=== PATIENT | female | born 1985 | race Caucasian/White ===

== ENCOUNTER 2020-08-12 07:20 | Inpatient (IN) | payer SELFPAY ==
[~2020-08-12] VITALS: Ht 175.2 cm; Wt 119.3 kg
[~2020-08-12 07:20] MED LIST: depo provera
--- NOTE | 2020-08-12 07:29 | ED Chest Pain ---
General Stated Complaint: CP Source: patient, EMS Exam Limitations: no limitations History of Present Illness Date Seen by Provider: Aug 12, 2020 Time Seen by Provider: 07:03 Initial Comments Patient is a 34-year-old female who presents to the emergency department today with a chief complaint of substernal chest pain that she describes as a "squeezing". Patient does endorse a little bit of nausea as well as some shortness of breath with the pain. Patient states she woke up about 6:00 this morning just before her alarm went off with pain and also pain in her forearms. Patient states that she had a numbness, tightness, tingling in her bilateral forearms. She describes the pain as "a 10" at onset and currently a "7". Patient was given 4 baby aspirin and some sublingual nitroglycerin in the ambulance on the way to the hospital. She states that that medication made her pain go down to a "4". Patient denies any recent heavy exertional activities. 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 She is a smoker and admits to about a half a pack a day. No history of hypertension that she is aware of. Patient has not been seen by In at least a year. Patient states that she had her tubes tied 5 years ago and that she does not believe she could be . Her last menstrual cycle was 1 week ago. Patient states she has a family history of coronary artery disease that her mother had a heart attack when she was in her mid 30s. Patient denies any recent febrile illnesses, cough, shortness of breath, congestion. No GI or symptoms. No recent prolonged bedrest or recent travel. All other review of systems reviewed and negative except as stated above. Timing/Duration: 1 hour Severity/Quality: severe, tightness Location: substernal Radiation: arms Activities at Onset: none Prior CP/Workup: no prior cardiac workup Modifying Factors: improves with other (Aspirin and sublingual nitroglycerin) ASA po CHIEF DISPATCHER SERVICE: Yes NTG SL CHIEF DISPATCHER SERVICE: Yes Associated Symptoms: nausea/vomiting Allergies and Home Medications Allergies Coded Allergies: No Known Drug Allergies (Unverified , 12/13/10) Home Medications [depo provera] , every 3 months, (Reported) Patient Home Medication List Home Medication List Reviewed: Yes Review of Systems Review of Systems Constitutional: see HPI EENTM: No Symptoms Reported Respiratory: Shortness of Air Cardiovascular: Chest Pain Gastrointestinal: No Symptoms Reported Genitourinary: No Symptoms Reported Musculoskeletal: other (Bilateral forearm pain) Skin: no symptoms reported All Other Systems Reviewed Negative Unless Noted: Yes Past Xdanzam-Gudbvw-Tnqxqs Hx Past Medical History Reproductive Disorders: No Physical Exam Vital Signs Vital Signs - First Documented Capillary Refill : Height, Weight, BMI Height: '" Weight: lbs. oz. kg; BMI Method: General Appearance: No Apparent Distress, WD/WN Neck: Full Range of Motion, Normal Inspection Respiratory: Lungs Clear, Normal Breath Sounds, No Accessory Muscle Use, No Respiratory Distress Cardiovascular: Regular Rate, Rhythm, No Murmur Gastrointestinal: Normal Bowel Sounds, Non Tender, Soft Extremity: Normal Inspection, Normal Range of Motion, Non Tender, No Calf Tenderness, No Pedal Edema Neurologic/Psychiatric: Alert, Oriented x3, No Motor/Sensory Deficits, Normal Mood/Affect Skin: Normal Color, Warm/Dry Progress/Results/Core Measures Results/Orders Lab Results Laboratory Tests Test 08/12/20 07:31 08/12/20 11:16 Range/Units White Blood Count 7.0 4.3-11.0 10^3/uL Red Blood Count 4.39 3.80-5.11 10^6/uL Hemoglobin 12.7 11.5-16.0 g/dL Hematocrit 38 35-52 % Mean Corpuscular Volume 87 80-99 fL Mean Corpuscular Hemoglobin 29 25-34 pg Mean Corpuscular Hemoglobin Concent 33 32-36 g/dL Red Cell Distribution Width 13.7 10.0-14.5 % Platelet Count 311 130-400 10^3/uL Mean Platelet Volume 9.7 9.0-12.2 fL Immature Granulocyte % (Auto) 0 % Neutrophils (%) (Auto) 49 42-75 % Lymphocytes (%) (Auto) 40 12-44 % Monocytes (%) (Auto) 7 0-12 % Eosinophils (%) (Auto) 3 0-10 % Basophils (%) (Auto) 1 0-10 % Neutrophils # (Auto) 3.5 1.8-7.8 10^3/uL Lymphocytes # (Auto) 2.8 1.0-4.0 10^3/uL Monocytes # (Auto) 0.5 0.0-1.0 10^3/uL Eosinophils # (Auto) 0.2 0.0-0.3 10^3/uL Basophils # (Auto) 0.0 0.0-0.1 10^3/uL Immature Granulocyte # (Auto) 0.0 0.0-0.1 10^3/uL Prothrombin Time 12.9 12.2-14.7 SEC INR Comment 0.9 0.8-1.4 Activated Partial Thromboplast Time 33 24-35 SEC Sodium Level 136 135-145 MMOL/L Potassium Level 3.9 3.6-5.0 MMOL/L Chloride Level 105 98-107 MMOL/L Carbon Dioxide Level 23 21-32 MMOL/L Anion Gap 8 5-14 MMOL/L Blood Urea Nitrogen 12 7-18 MG/DL Creatinine 0.93 0.60-1.30 MG/DL Estimat Glomerular Filtration Rate > 60 BUN/Creatinine Ratio 13 Glucose Level 102 70-105 MG/DL Calcium Level 8.9 8.5-10.1 MG/DL Corrected Calcium 8.9 8.5-10.1 MG/DL Magnesium Level 1.8 1.6-2.4 MG/DL Total Bilirubin 0.3 0.1-1.0 MG/DL Aspartate Amino Transf (AST/SGOT) 14 5-34 U/L Alanine Aminotransferase (ALT/SGPT) 13 0-55 U/L Alkaline Phosphatase 91 40-136 U/L Myoglobin 37.0 10.0-92.0 NG/ML Troponin I < 0.028 40.121 *H <0.028 NG/ML Total Protein 6.9 6.4-8.2 GM/DL Albumin 4.0 3.2-4.5 GM/DL Serum Test, Qualitative NEGATIVE NEGATIVE My Orders Orders - WALTER LANGE MD Cbc With Automated Diff (08/12/20 07:38) Magnesium (08/12/20 07:38) Chest 1 View, Ap/Pa Only (08/12/20 07:38) Ekg Tracing (08/12/20 07:38) Comprehensive Metabolic Panel (08/12/20 07:38) Myoglobin Serum (08/12/20 07:38) Protime With Inr (08/12/20 07:38) Partial Thromboplastin Time (08/12/20 07:38) O2 (08/12/20 07:38) Monitor-Rhythm Ecg Trace Only (08/12/20 07:38) Ed Iv/Invasive Line Start (08/12/20 07:38) Troponin I (08/12/20 07:38) Hcg,Qualitative Serum (08/12/20 08:03) Ondansetron Injection (Zofran Injectio (08/12/20 08:15) Nitroglycerin 0.4 Mg Btl 25's (Nitrostat (08/12/20 08:15) Troponin I (08/12/20 10:19) Clopidogrel Tablet (Plavix Tablet) (08/12/20 12:15) Metoprolol Succinate (Xl) Tab (Toprol Xl (08/12/20 12:15) Medications Given in ED Current Medications Medications Dose Ordered Sig/Memo Route Start Time Stop Time Status Last Admin Dose Admin Clopidogrel Bisulfate 300 mg STK-MED ONCE PO 08/12/20 12:10 08/12/20 12:15 DC 08/12/20 12:20 300 MG Nitroglycerin 0.4 mg NEEDED PRN SL 08/12/20 08:15 08/12/20 08:16 0.4 MG Ondansetron HCl 4 mg ONCE ONCE IVP 08/12/20 08:15 08/12/20 08:16 DC 08/12/20 08:16 4 MG Vital Signs/I&O 08/12/20 08/12/20 07:22 07:22 Temp 36.7 Pulse 77 Resp 17 B/P (MAP) 132/99 (110) Pulse Ox 100 O2 Delivery Room Air Room Air Progress Progress Note : Time: 12:20 Progress Note Notified by nursing staff of the patient's critical troponin at 40. Patient was immediately reevaluated and still resting comfortably without any pain. Repeat EKG was obtained which continued to show no ST segment changes or elevation or depression. Normal sinus rhythm. Case was discussed with Dr. Zi howell for cardiology who requests Toprol-XL 50 mg, 300 mg of Plavix, aspirin 325 and weight-based Lovenox. Care was also discussed with Dr. Rosales who will admit the patient to the hospitalist service. I have also discussed the plan of care with the patient's . Initial ECG Impression Date: Aug 12, 2020 Initial ECG Impression Time: 07:26 Initial ECG Rate: 59 Initial ECG Rhythm: Normal Sinus Initial ECG Intervals: Normal Initial ECG Impression: Normal Departure Communication (Admissions) Time/Spoke to Admitting Phy: 12:[address] Rosales who accepts the patient for admission Time/Spoke to Consulting Phy: 12:13 Case discussed with Impression Primary Impression: Chest pain Additional Impression: Non-ST elevated myocardial infarction Disposition: ADMITTED INPATIENT Condition: Stable Admissions Decision to Admit Reason: Admit from ER (General) Decision to Admit/Date: Aug 12, 2020 Time/Decision to Admit Time: 12:22 Departure-Patient Inst. Referrals: NO,LOCAL PHYSICIAN (PCP/Family) Primary Care Physician WALTER LANGE MD Aug 12, 2020 07:29
[2020-08-12 07:45] LABS: BASOPHILS % (AUTO) 1 % (0-10); EOSINOPHILS # (AUTO) 0.2 10^3/uL (0.0-0.3); EOSINOPHILS % (AUTO) 3 % (0-10); HEMATOCRIT 38 % (35-52); HEMOGLOBIN 12.7 g/dL (11.5-16.0); LYMPHOCYTES # (AUTO) 2.8 10^3/uL (1.0-4.0); LYMPHOCYTES % (AUTO) 40 % (12-44); MEAN CORPUSCULAR HEMOGLOBIN 29 pg (25-34); MEAN CORPUSCULAR HGB CONC 33 g/dL (32-36); MEAN CORPUSCULAR VOLUME 87 fL (80-99); MEAN PLATELET VOLUME 9.7 fL (9.0-12.2); MONOCYTES # (AUTO) 0.5 10^3/uL (0.0-1.0); MONOCYTES % (AUTO) 7 % (0-12); NEUTROPHILS # (AUTO) 3.5 10^3/uL (1.8-7.8); NEUTROPHILS % (AUTO) 49 % (42-75); PLATELET COUNT 311 10^3/uL (130-400)
[2020-08-12 07:48] LABS: CHLORIDE 105 MMOL/L (98-107); POTASSIUM 3.9 MMOL/L (3.6-5.0); SODIUM 136 MMOL/L (135-145)
[2020-08-12 07:49] LABS: CALCIUM 8.9 MG/DL (8.5-10.1); INR 0.9 (0.8-1.4); PROTHROMBIN TIME PATIENT 12.9 SEC (12.2-14.7)
[2020-08-12 07:50] LABS: GLUCOSE 102 MG/DL (70-105); TOTAL PROTEIN 6.9 GM/DL (6.4-8.2)
[2020-08-12 07:51] LABS: CARBON DIOXIDE 23 MMOL/L (21-32)
[2020-08-12 07:52] LABS: BILIRUBIN,TOTAL 0.3 MG/DL (0.1-1.0)
[2020-08-12 07:53] LABS: ALKALINE PHOSPHATASE 91 U/L (40-136); CREATININE SERUM 0.93 MG/DL (0.60-1.30); GFR ESTIMATED > 60
[2020-08-12 07:55] LABS: BUN/CREATININE RATIO 13
[2020-08-12 07:56] LABS: ALANINE AMINOTRANSFERASE 13 U/L (0-55); MAGNESIUM 1.8 MG/DL (1.6-2.4)
[2020-08-12] MEDS ORDERED: NITROGLYCERIN 0.4 MG SL TABS BTL 25'S SL PRN (08:15)
[2020-08-12] MEDS ORDERED: ONDANSETRON 4 MG/2 ML (SDV) Z0FRAN IVP ONE (08:15)
--- NOTE | 2020-08-12 08:34 | Diagnostic Imaging Report ---
INDICATION: Chest pain. EXAMINATION: Frontal chest obtained at 8:01 AM. FINDINGS: The heart and mediastinal silhouette are normal in appearance. The lungs are clear. There is no pneumothorax or pleural fluid. IMPRESSION: Negative chest. Dictated by: Dictated on workstation # [id number]
--- NOTE | 2020-08-12 11:58 | NUR ---
WAS CALLED AT THIS TIME [phone] AND WAS UPDATED.
[2020-08-12] MEDS ORDERED: CLOPIDOGREL 300 MG (PLAVIX) TABLET PO ONE ×2 (12:10→12:15)
[2020-08-12] MEDS ORDERED: meTOproloL SUCCINATE 50 MG (TOPROL XL) TAB PO SCH (12:15)
[2020-08-12] MEDS ORDERED: LIDOCAINE 1% INJ 20 ML 20 ML VIAL ONE (12:23)
[2020-08-12] MEDS ORDERED: fentaNYL INJECTION 100 MCG/2 ML AMP ONE (12:23)
[2020-08-12] MEDS ORDERED: MIDAZOLAM 5 MG/5 ML (VERSED) VIAL ONE (12:23)
[2020-08-12] MEDS ORDERED: HEParin (CATH LAB) 2,000 ML IV ONE (12:23)
[2020-08-12] MEDS ORDERED: NS IV 1000 ML 1,000 ML ONE (12:23)
[2020-08-12 12:26] VITALS: BP 150/89
--- NOTE | 2020-08-12 12:26 | NUR ---
PT LEFT WITH INSULATION SUPERVISOR TEAM AT THIS TIME. 150/89 82 HEART RATE 100% ON ROOM AIR 18 RESPIRATIONS
[2020-08-12] MEDS ORDERED: HEParin 1000 UNIT/ML (10ML VIAL) FOR BOLUS ONE (12:33)
[2020-08-12] MEDS ORDERED: NITRO DRIP 25000 MCG/D5W 250 ML IV ONE (12:33)
[2020-08-12] MEDS ORDERED: morphine INJ 4 MG/ML 1 ML (VIAL/SYRINGE) ONE (12:34)
--- NOTE | 2020-08-12 13:32 | Consultation-Cardiology ---
HPI-Cardiology Cardiology Consultation: Date of Consultation 08/12/20 Time Seen by a Provider: 12:15 Date of Admission Attending Physician Dr Rosales Admitting Physician No,Local Physician Consulting Physician CONRAD SEALS MD, MA, FACP, FACC, FSCAI, CCDS HPI: Chief Complaint: CC: Chest pain HPI 34 yo woman awoke with chest pain that was midsternal, squeezing, radiating to the shoulder, mod to sever, never experienced before. She called the ambulance and went to the ER a couple of hours after the onset. Pain improved with ASA and some s/l NTG in the ambulance. ECG and troponin negative in the ER at presentation. ER physician kept her in the ER and repeated troponin 4 hours later at which time it had jumped to 40. The ER physician asked us to see her consultation. Because the troponin elevation and the clinical scenario was suggestive of relatively large OH, albeit w/o ST changes, and because the pt was still reporting mod squeezing discomfort in the chest, we recommended urgent cath. She denies cp prior that. She has chronic, slowly progressive exertional shortness of breath. She denies palp or syncope or n/v or swelling Review of Systems-Cardiology Review of Systems Constitutional: malaise; No weight loss, No weight gain Eyes: No vision change Ears/Nose/Throat: No ear discharge, No nasal drainage, No recent hearing loss Respiratory: As described under HPI Cardiovascular: As described under HPI Gastrointestinal: As described under HPI Genitourinary: No dysuria, No hematuria, No urine frequency changes Musculoskeletal: back pain (chronic, intermittent); No joint pain Skin: No rash, No ulcerations Psychiatric/Neurological: No seizure, No focal weakness, No syncope Hematologic: No bleeding abnormalities All Other Systems Reviewed Negative Unless Noted: Yes RIW-Oplori-Kmsydc Hx Patient Social History Smoking Status: Current Everyday Smoker 2nd Hand Smoke Exposure: Yes Past Medical History PMH As described under Assessment. Family Medical History Family Medical History: Mother had OH when in her mid to late 30s Allergies and Home Medications Allergies Coded Allergies: No Known Drug Allergies (Unverified , 12/13/10) Home Medications [depo provera] , every 3 months, (Reported) Patient Home Medication List Home Medication List Reviewed: Yes Physical Exam-Cardiology Physical Exam Vital Signs/I&O 08/12/20 08/12/20 07:22 07:22 Temp 36.7 Pulse 77 Resp 17 B/P (MAP) 132/99 (110) Pulse Ox 100 O2 Delivery Room Air Room Air Capillary Refill : Less Than 3 Seconds Constitutional: AAO x 3, well-developed, well-nourished HEENT: EOMI, hearing is well preserved; No xanthelasmas are seen Neck: carotid pulses are 2 + bilaterally, with good upstrokes Respiratory: No accessory muscle use; other (good bilateral air entry) Cardiovascular: regular rate-rhythm, S1 and S2, systolic murmur (soft JOSI at card base) Gastrointestinal: No tender; soft; No guarding, No rebound; audible bowel sounds Extremities: No clubbing, No cyanosis, No significant edema Neurologic/Psychiatric: oriented x 3, other (moves all limbs equally) Skin: No rash on exposed areas, No ulcerations on exposed areas Data Review Labs Laboratory Tests 08/12/20 07:31: White Blood Count 7.0, Red Blood Count 4.39, Hemoglobin 12.7, Hematocrit 38, Mean Corpuscular Volume 87, Mean Corpuscular Hemoglobin 29, Mean Corpuscular Hemoglobin Concent 33, Red Cell Distribution Width 13.7, Platelet Count 311, Mean Platelet Volume 9.7, Immature Granulocyte % (Auto) 0, Neutrophils (%) (Auto) 49, Lymphocytes (%) (Auto) 40, Monocytes (%) (Auto) 7, Eosinophils (%) (Auto) 3, Basophils (%) (Auto) 1, Neutrophils # (Auto) 3.5, Lymphocytes # (Auto) 2.8, Monocytes # (Auto) 0.5, Eosinophils # (Auto) 0.2, Basophils # (Auto) 0.0, Immature Granulocyte # (Auto) 0.0, Prothrombin Time 12.9, INR Comment 0.9, Activated Partial Thromboplast Time 33, Sodium Level 136, Potassium Level 3.9, Chloride Level 105, Carbon Dioxide Level 23, Anion Gap 8, Blood Urea Nitrogen 12, Creatinine 0.93, Estimat Glomerular Filtration Rate > 60, BUN/Creatinine Ratio 13, Glucose Level 102, Calcium Level 8.9, Corrected Calcium 8.9, Magnesium Level 1.8, Total Bilirubin 0.3, Aspartate Amino Transf (AST/SGOT) 14, Alanine Aminotransferase (ALT/SGPT) 13, Alkaline Phosphatase 91, Myoglobin 37.0, Troponin I < 0.028, Total Protein 6.9, Albumin 4.0, Serum Test, Qualitative NEGATIVE 08/12/20 11:16: Troponin I 40.121*H 08/12/20 12:54: Laboratory Tests 08/12/20 07:31 A/P-Cardiology Assessment/Admission Diagnosis Ac OH w/o ST elevation: transient coronary thromboembolism vs atypical 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) - Card cath on 08/12/20: no significant CAD, LVEDP 5 mmHg, LVEF 50%, posterobasal hypokinesis Obesity with BMI approx 30 Chronic smoking Fam h/o premature CAD Discussion and Recomendations * Treat with DAPT * Add beta-wilma * Consider sleep study * Consider COVID testing. Discussed with Dr Rosales.Will leave to his discretion * Advised to quit smoking immediately and completely Clinical Quality Measures AMI/AHF: ASA po Prior to arrival: Yes CONRAD SEALS MD FACP FAC CCDS Aug 12, 2020 13:32
[2020-08-12] MEDS ORDERED: ACETAMINOPHEN 325 MG TABLET PO PRN ×2 (13:45→20:00)
[2020-08-12] MEDS ORDERED: PATIENT MAY USE OWN MEDS, ALL PO SCH (13:45)
[2020-08-12] MEDS: NS IV 1000 ML 1,000 ML IV SCH (13:53)
--- NOTE | 2020-08-12 14:05 | CARDIAC CATHETERIZATION ---
DATE OF SERVICE: 08/12/2020 CARDIAC CATHETERIZATION REPORT INDICATION FOR PROCEDURE: The patient is a 34-year-old lady, who presented to the emergency room with couple hours of chest pain. Electrocardiogram did not show any abnormality and the troponin was normal. The emergency room physician repeated the troponin 4 hours and it was found to be markedly elevated. We were called to see her in consultation. She was still reporting some chest discomfort. We recommended urgent cardiac catheterization. This was discussed in detail. She provided informed consent for cardiac catheterization and possible ad hoc coronary intervention. DESCRIPTION OF PROCEDURE: She was brought to the cardiac catheterization laboratory. Right groin was prepared and draped in the usual sterile fashion. Lidocaine 1% was used as local anesthesia. Modified Seldinger technique was used to advance a 6-Thai sheath in the right femoral artery. A 6-Thai JL3.5 guide catheter was used to engage the left coronary artery and perform left coronary angiography. We used a 6-Thai JR4 catheter to perform right coronary angiography. We used a pigtail catheter to carry out left heart catheterization and left ventricular angiography. We pulled the pigtail catheter back to the aortic root and the aortic root angiography was performed. The catheter was removed. Angiography of the right femoral artery was carried out through the sheath. Mynx was used to achieve hemostasis. She tolerated the procedure well. HEMODYNAMICS: Left ventricular end-diastolic pressure following coronary angiography was 5 mmHg. There was no significant pressure gradient on pullback across the aortic valve. Ascending aortic pressure was 131/79 with a mean of 104 mmHg. CORONARY ANGIOGRAPHY: Left main coronary artery, left anterior descending artery, left circumflex artery and right coronary artery are angiographically normal. Right coronary artery is dominant. The right coronary artery is large and somewhat tortuous and pliable. At the tip of catheter engagement, there was a mild kink because of the catheter tip, which did not appear to be any kind of a lesion. There did not appear to be any coronary spasm. There was no pressure damping either. LEFT VENTRICULAR ANGIOGRAPHY: Left ventricular angiography was carried out in the right anterior oblique projection. There is a posterobasal hypokinesis. Left ventricular ejection fraction is approximately 50%. CONCLUSIONS: 1. No angiographically significant coronary artery disease. 2. Posterobasal hypokinesis suggestive of myocardial infarction. 3. Normal left ventricular end-diastolic pressure. 4. A well-preserved global left ventricular systolic function with an ejection fraction approximately 50%. DISCUSSION AND RECOMMENDATIONS: Based on results of the study, it appears that she may have had a transient thrombus, perhaps in the left circumflex territory. She may also have had an atypical Prinzmetal angina attack (without ST elevation). We recommend dual antiplatelet therapy for now. Given that she seems to have had a myocardial infarction, we also recommend beta-wilma therapy for now. Further recommendation will be based on her hospital course. She has been advised to quit smoking immediately and completely. Job ID: [id number] DocumentID: [id number] Dictated Date: 08/12/2020 13:50:26 Web Marketing Manager Date: 08/12/2020 14:03:21 Dictated By: CONRAD SEALS MD, MA, FACP, FACC, MTDD
[2020-08-12] MEDS ORDERED: ENOXAPARIN 40 MG/0.4 ML (LOVENOX) SYR SC SCH (18:00)
[2020-08-12] MEDS ORDERED: BISACODYL 10 MG SUPP (DULCOLAX) PR PRN (20:00)
[2020-08-12] MEDS ORDERED: ONDANSETRON 4 MG/2 ML (SDV) Z0FRAN IV PRN (20:00)
[2020-08-12] MEDS ORDERED: ANTACID SUSP 30 ML UDC (MYLANTA) PO PRN (20:00)
[2020-08-12] MEDS ORDERED: diphenhydrAMINE 25 MG TAB (BENADRYL) PO PRN (20:00)
[2020-08-12] MEDS ORDERED: ONDANSETRON 4 MG (ZOFRAN) ORAL DISSOLVE TAB PO PRN (20:00)
[2020-08-12] MEDS ORDERED: MELATONIN 3 MG TABLET PO PRN (20:00)
--- NOTE | 2020-08-12 20:09 | History & Physical-Hospitalist ---
History of Present Illness HPI/Chief Complaint Debbie Dunn is a 34 year old female who presented with chest pain. She reports mid-sternal chest pain which radiated to her arms. She reports tingling in her bilateral arms. She reports nausea but no vomiting. She denies diaphoresis. She reports difficulty catching her breath when the pain was bad. Upon my examinatio n, her pain has resolved. She denies any fevers or chills. She denies cough. She has not had any sick contacts. She has no other complaints or concerns. Source: patient Exam Limitations: no limitations Date Seen 08/12/20 Time Seen by a Provider: 16:00 Attending Physician Vita Bueno MD PCP No,Local Physician Referring Physician Date of Admission Aug 12, 2020 at 12:18 Home Medications & Allergies Home Medications Reviewed patient Home Medication Reconciliation performed by pharmacy medication reconciliations epitaxial reactor technician and/or nursing. Patients Allergies have been reviewed. Allergies Allergies Coded Allergies No Known Drug Allergies (Unverified12/13/10) Past Geeoqei-Lgwitz-Bbnqfi Hx Past Med/Social Hx: Reviewed Nursing Past Med/Soc Hx Patient Social History Alcohol Use: Denies Use Recreational Drug Use: No Smoking Status: Current Everyday Smoker Type Used: Cigarettes 2nd Hand Smoke Exposure: Yes Recent Foreign Travel: No Contact w/other who traveled: No Recent Hopitalizations: No Recent Infectious Disease Expo: No Seasonal Allergies Seasonal Allergies: No Past Medical History Surgeries: Appendectomy, Gallbladder, Tubal Ligation Cardiac: Heart Murmur Reproductive: No Genitourinary: Kidney Stones Did You Recieve Any Treatments: No History of Blood Disorders: No Review of Systems Constitutional: no symptoms reported EENTM: no symptoms reported Respiratory: no symptoms reported Cardiovascular: chest pain Gastrointestinal: no symptoms reported Genitourinary: no symptoms reported Musculoskeletal: no symptoms reported Skin: no symptoms reported Psychiatric/Neurological: No Symptoms Reported Physical Exam Physical Exam Vital Signs Vital Signs - First Documented Capillary Refill : Less Than 3 Seconds Height, Weight, BMI Height: '" Weight: lbs. oz. kg; 29.00 BMI Method: General Appearance: No Apparent Distress, Obese HEENT: PERRL/EOMI, Pharynx Normal Neck: Normal Inspection, Supple Respiratory: Lungs Clear, Normal Breath Sounds, No Respiratory Distress Cardiovascular: Regular Rate, Rhythm, No Edema, No Murmur Gastrointestinal: Normal Bowel Sounds, Non Tender, Soft Extremity: Normal Inspection, Non Tender, No Pedal Edema Neurologic/Psychiatric: Alert, Oriented x3, No Motor/Sensory Deficits, Normal Mood/Affect Skin: Normal Color, Warm/Dry Results Results/Procedures Labs Laboratory Tests 08/12/20 07:31 Patient resulted labs reviewed. Imaging: Reviewed Imaging Report Assessment/Plan Admission Diagnosis NSTEMI Admission Status: Inpatient Order (span 2 midnights) Reason for Inpatient Admission: NSTEMI requiring further treatment and evaluation Assessment and Plan NSTEMI Possible coronary vasospasm Troponin initially negative, increased to >40 D-dimer normal, no oxygen requirement No evidence or cocnern for Cardiology consulted, appreciate assistance Left heart cath performed, no significant coronary artery disease identified Started on ASA and Plavix Begin Metoprolol Echo ordered Consider starting calcium channel wilma Tobacco abuse Nicotine patch Obesity Clinically significant, no acute management needs DVT prophylaxis: Lovenox Diagnosis/Problems Diagnosis/Problems (1) Non-ST elevated myocardial infarction Status: Acute (2) Tobacco abuse Status: Chronic (3) Obesity Status: Chronic Clinical Quality Measures AMI/AHF: ASA po Prior to arrival: Yes VITA BUENO MD Aug 12, 2020 20:09
[2020-08-12] MEDS: SENNOSIDES 8.6 MG (SENOKOT) TAB PO SCH (21:12)
[2020-08-12] MEDS: ENOXAPARIN 40 MG/0.4 ML (LOVENOX) SYR SC SCH (21:12)
[2020-08-12] MEDS: DOCUSATE SODIUM 100 MG (COLACE) CAP PO SCH (21:12)
[2020-08-13] MEDS: NS IV 1000 ML 1,000 ML IV SCH ×3 (00:04→19:48)
[2020-08-13 04:01] LABS: HEMOGLOBIN 11.6 g/dL (11.5-16.0); MEAN PLATELET VOLUME 9.7 fL (9.0-12.2); WHITE BLOOD COUNT 7.8 10^3/uL (4.3-11.0)
[2020-08-13 04:15] LABS: CHLORIDE 107 MMOL/L (98-107); POTASSIUM 4.1 MMOL/L (3.6-5.0); SODIUM 135 MMOL/L (135-145)
[2020-08-13 04:17] LABS: CALCIUM 8.4 MG/DL (8.5-10.1); TRIGLYCERIDES 112 MG/DL (<150); VLDL CHOLESTEROL 22 MG/DL (5-40)
[2020-08-13 04:18] LABS: GLUCOSE 95 MG/DL (70-105)
[2020-08-13 04:19] LABS: CARBON DIOXIDE 22 MMOL/L (21-32)
[2020-08-13 04:21] LABS: CREATININE SERUM 0.83 MG/DL (0.60-1.30); GFR ESTIMATED > 60
[2020-08-13 04:22] LABS: BUN/CREATININE RATIO 12; CHOLESTEROL 156 MG/DL (< 200)
[2020-08-13 04:23] LABS: HDL CHOLESTEROL 36 MG/DL (40-60)
[2020-08-13] MEDS: SENNOSIDES 8.6 MG (SENOKOT) TAB PO SCH (08:03)
[2020-08-13] MEDS: NICOTINE PATCH REMOVAL TP SCH (08:03)
[2020-08-13] MEDS: CLOPIDOGREL 75 MG (PLAVIX) TABLET PO SCH (08:03)
[2020-08-13] MEDS: ASPIRIN 81 MG CHEW (CHILDREN'S ASA) PO SCH (08:03)
[2020-08-13] MEDS: NICOTINE 14 MG (NICODERM) PATCH TD SCH (08:04)
[2020-08-13] MEDS: DOCUSATE SODIUM 100 MG (COLACE) CAP PO SCH (08:04)
--- NOTE | 2020-08-13 09:53 | Progress Note - Cardiology ---
Cardiology SOAP Progress Note Subjective: Sitting up in bed No c/o CP No c/o SOB Objective: I&O/Vital Signs 08/13/20 08/13/20 08/13/20 08/13/20 04:33 06:28 08:01 12:03 Temp 37.0 36.0 37.0 Pulse 70 59 69 68 Resp 20 18 20 B/P (MAP) 98/64 (75) 106/74 (85) 138/83 (101) Pulse Ox 97 98 97 O2 Delivery Room Air Room Air Room Air 08/13/20 00:00 Intake Total 1930 ml Output Total 900 ml Balance 1030 ml Side: right Condition: DP/PT pulses palpable, extremity w/d/p Bruising: mild bruising Constitutional: AAO x 3, well-developed, well-nourished Respiratory: No accessory muscle use; other (good bilateral air entry) Cardiovascular: regular rate-rhythm, S1 and S2, systolic murmur (soft JOSI at card base) Gastrointestional: No tender; soft; No guarding, No rebound; audible bowel sounds Extremities: No clubbing, No cyanosis, No significant edema Neurologic/Psychiatric: oriented x 3, other (moves all limbs equally) Skin: No rash on exposed areas, No ulcerations on exposed areas Results/Procedures: Labs Laboratory Tests 08/12/20 16:05: D-Dimer <= 0.27 08/13/20 03:55: White Blood Count 7.8, Red Blood Count 4.05, Hemoglobin 11.6, Hematocrit 36, Mean Corpuscular Volume 88, Mean Corpuscular Hemoglobin 29, Mean Corpuscular Hemoglobin Concent 33, Red Cell Distribution Width 13.8, Platelet Count 286, Mean Platelet Volume 9.7, Sodium Level 135, Potassium Level 4.1, Chloride Level 107, Carbon Dioxide Level 22, Anion Gap 6, Blood Urea Nitrogen 10, Creatinine 0.83, Estimat Glomerular Filtration Rate > 60, BUN/Creatinine Ratio 12, Glucose Level 95, Calcium Level 8.4L, Troponin I 19.814*H, Triglycerides Level 112, Cholesterol Level 156, LDL Cholesterol Direct 113, VLDL Cholesterol 22, HDL Cholesterol 36L A/P: Assessment: Ac [place] w/o ST elevation: transient coronary thromboembolism vs atypical 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) - Card cath on 08/12/20: no significant CAD, LVEDP 5 mmHg, LVEF 50%, posterobasal hypokinesis Obesity with BMI approx 30 Chronic smoking Fam h/o premature CAD Plan: * Treat with DAPT * Continue beta-wilma * Echocardiogram pending * Consider sleep study as out pt * Consider COVID testing. Discussed with Dr Rosales.Will leave to his discretion * Advised to quit smoking immediately and completely Clinical Quality Measures AMI/AHF: ASA po Prior to arrival: Yes ERICK PINEDA Aug 13, 2020 09:53
--- NOTE | 2020-08-13 12:04 | Progress Note - Cardiology ---
Cardiology SOAP Progress Note Subjective: No cp or palp or syncope or shortness of breath Objective: I&O/Vital Signs 08/13/20 08/13/20 08/13/20 08/13/20 01:00 04:33 06:28 08:01 Temp 37.0 36.0 Pulse 70 70 59 69 Resp 20 18 B/P (MAP) 98/64 (75) 106/74 (85) Pulse Ox 97 98 O2 Delivery Room Air Room Air 08/13/20 00:00 Intake Total 1930 ml Output Total 900 ml Balance 1030 ml Side: right Condition: DP/PT pulses palpable, extremity w/d/p Bruising: mild bruising Constitutional: AAO x 3, well-developed, well-nourished Respiratory: No accessory muscle use; other (good bilateral air entry) Cardiovascular: regular rate-rhythm, S1 and S2, systolic murmur (soft JOSI at card base) Gastrointestional: No tender; soft; No guarding, No rebound; audible bowel sounds Extremities: No clubbing, No cyanosis, No significant edema Neurologic/Psychiatric: oriented x 3, other (moves all limbs equally) Skin: No rash on exposed areas, No ulcerations on exposed areas Results/Procedures: Labs Laboratory Tests 08/12/20 12:54: Troponin I 42.649*H 08/12/20 16:05: D-Dimer <= 0.27 08/13/20 03:55: Troponin I 19.814*H, White Blood Count 7.8, Red Blood Count 4.05, Hemoglobin 11.6, Hematocrit 36, Mean Corpuscular Volume 88, Mean Corpuscular Hemoglobin 29, Mean Corpuscular Hemoglobin Concent 33, Red Cell Distribution Width 13.8, Platelet Count 286, Mean Platelet Volume 9.7, Sodium Level 135, Potassium Level 4.1, Chloride Level 107, Carbon Dioxide Level 22, Anion Gap 6, Blood Urea Nitrogen 10, Creatinine 0.83, Estimat Glomerular Filtration Rate > 60, BUN/Creatinine Ratio 12, Glucose Level 95, Calcium Level 8.4L, Triglycerides Level 112, Cholesterol Level 156, LDL Cholesterol Direct 113, VLDL Cholesterol 22, HDL Cholesterol 36L Laboratory Tests 08/12/20 07:31 08/13/20 03:55 A/P: Assessment: Ac [place] w/o ST elevation: transient coronary thromboembolism vs atypical 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) - Card cath on 08/12/20: no significant CAD, LVEDP 5 mmHg, LVEF 50%, posterobasal hypokinesis Obesity with BMI approx 30 Chronic smoking Fam h/o premature CAD Plan: * Treat with DAPT * Continue beta-wilma * Given fairly large OH (albeit without any epicardial CAD) we recommend continuing hospitalization for another 24 hours * Increase ambulation * Consider sleep study as out pt * Discussed with Dr Rosales on 08/12/20 * Advised to quit smoking immediately and completely Clinical Quality Measures AMI/AHF: ASA po Prior to arrival: Yes CONRAD SEALS MD FACP FAC CCDS Aug 13, 2020 12:04
--- NOTE | 2020-08-13 14:07 | Progress Note - Hospitalist ---
Subjective HPI/CC On Admission Date Seen by Provider: Aug 13, 2020 Time Seen by Provider: 08:55 Debbie Dunn is a 34 year old female who presented with chest pain. She reports mid-sternal chest pain which radiated to her arms. She reports tingling in her bilateral arms. She reports nausea but no vomiting. She denies diaphoresis. She reports difficulty catching her breath when the pain was bad. Upon my examination, her pain has resolved. She denies any fevers or chills. She denies cough. She has not had any sick contacts. She has no other complaints or concerns. Subjective/Events-last exam She is feeling well. She is not having any chest pain. She denies any shortness of breath. She has no fevers. She has no cough. She has no complaints or concerns. Objective Exam Vital Signs Vital Signs Date Time Temp Pulse Resp B/P (MAP) Pulse Ox O2 Delivery O2 Flow Rate FiO2 08/13/20 12:03 37.0 68 20 138/83 (101) 97 Room Air Capillary Refill : Less Than 3 Seconds General Appearance: No Apparent Distress, Obese Respiratory: Lungs Clear, Normal Breath Sounds, No Respiratory Distress Cardiovascular: Regular Rate, Rhythm, No Edema, No Murmur Gastrointestinal: Normal Bowel Sounds, Non Tender, Soft Extremity: Normal Inspection, Non Tender, No Pedal Edema Neurologic/Psychiatric: Alert, Oriented x3, No Motor/Sensory Deficits, Normal Mood/Affect Skin: Normal Color, Warm/Dry Results/Procedures Lab Laboratory Tests 08/13/20 03:55 Patient resulted labs reviewed. Imaging: Reviewed Imaging Report Assessment/Plan Assessment and Plan Assess & Plan/Chief Complaint NSTEMI Troponin initially negative, increased to >40, 19 this morning Cardiology consulted, appreciate assistance Left heart cath performed, no significant coronary artery disease identified Continue ASA and Plavix Continue Metoprolol Echo results pending Likely discharge tomorrow if stable Tobacco abuse Nicotine patch Tobacco cessation counseling Obesity Clinically significant, no acute management needs DVT prophylaxis: Lovenox Diagnosis/Problems Diagnosis/Problems (1) Non-ST elevated myocardial infarction Status: Acute (2) Tobacco abuse Status: Chronic (3) Obesity Status: Chronic Clinical Quality Measures AMI/AHF: ASA po Prior to arrival: Yes MARIANN BUENO MD Aug 13, 2020 14:07
[2020-08-13 18:15] LABS: AMPHETAMINE SCREEN, URINE NEGATIVE (NEGATIVE); BARBITURATE SCREEN URINE NEGATIVE (NEGATIVE); BENZODIAZEPINES SCREEN URINE NEGATIVE (NEGATIVE); CANNABINOID SCREEN, URINE NEGATIVE (NEGATIVE); COCAINE SCREEN URINE NEGATIVE (NEGATIVE); METHADONE STAT NEGATIVE (NEGATIVE); METHAMPHETAMINE SCREEN URINE S NEGATIVE (NEGATIVE); OPIATE SCREEN URINE NEGATIVE (NEGATIVE); OXYCODONE STAT NEGATIVE (NEGATIVE); PROPOXYPHENE STAT NEGATIVE (NEGATIVE); TRICYCLIC ANTIDEPRESSANTS SCRE NEGATIVE (NEGATIVE)
[2020-08-13] MEDS: ENOXAPARIN 40 MG/0.4 ML (LOVENOX) SYR SC SCH (19:54)
[2020-08-14] MEDS: DOCUSATE SODIUM 100 MG (COLACE) CAP PO SCH ×2 (00:36→08:27)
[2020-08-14] MEDS: SENNOSIDES 8.6 MG (SENOKOT) TAB PO SCH ×2 (00:36→08:27)
[2020-08-14] MEDS: NS IV 1000 ML 1,000 ML IV SCH (06:02)
[2020-08-14] MEDS: CLOPIDOGREL 75 MG (PLAVIX) TABLET PO SCH (08:19)
[2020-08-14] MEDS: ASPIRIN 81 MG CHEW (CHILDREN'S ASA) PO SCH (08:19)
[2020-08-14] MEDS: NICOTINE 14 MG (NICODERM) PATCH TD SCH ×2 (08:20→08:25)
[2020-08-14] MEDS: NICOTINE PATCH REMOVAL TP SCH (08:25)
--- NOTE | 2020-08-14 10:22 | Progress Note - Cardiology ---
Cardiology SOAP Progress Note Subjective: Sitting up in bed Wants to go home No c/o CP or SOB Has been up walking around in the room with c/o Objective: I&O/Vital Signs 08/13/20 08/14/20 08/14/20 08/14/20 23:39 01:00 04:00 07:00 Temp 37.0 37.0 Pulse 59 68 67 51 Resp 18 16 B/P (MAP) 138/79 (98) 133/72 (92) Pulse Ox 96 99 O2 Delivery Room Air Room Air 08/14/20 08/14/20 08:00 08:26 Temp 35.4 Pulse 63 Resp 16 B/P (MAP) 115/66 (82) Pulse Ox 99 O2 Delivery Room Air Room Air 08/14/20 00:00 Intake Total 1650 ml Balance 1650 ml Side: right Condition: DP/PT pulses palpable, extremity w/d/p Bruising: mild bruising Constitutional: AAO x 3, well-developed, well-nourished Respiratory: No accessory muscle use; other (good bilateral air entry) Cardiovascular: regular rate-rhythm, S1 and S2, systolic murmur (soft JOSI at card base) Gastrointestional: No tender; soft; No guarding, No rebound; audible bowel s ounds Extremities: No clubbing, No cyanosis, No significant edema Neurologic/Psychiatric: oriented x 3, other (moves all limbs equally) Skin: No rash on exposed areas, No ulcerations on exposed areas Results/Procedures: Labs Laboratory Tests 08/13/20 17:57: Urine Opiates Screen NEGATIVE, Urine Oxycodone Screen NEGATIVE, Urine Methadone Screen NEGATIVE, Urine Propoxyphene Screen NEGATIVE, Urine Barbiturates Screen NEGATIVE, Ur Tricyclic Antidepressants Screen NEGATIVE, Urine Phencyclidine Screen NEGATIVE, Urine Amphetamines Screen NEGATIVE, Urine Methamphetamines Screen NEGATIVE, Urine Benzodiazepines Screen NEGATIVE, Urine Cocaine Screen NEGATIVE, Urine Cannabinoids Screen NEGATIVE Laboratory Tests 08/13/20 03:55 A/P: Assessment: Ac [place] w/o ST elevation: transient coronary thromboembolism vs atypical 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) - Card cath on 08/12/20: no significant CAD, LVEDP 5 mmHg, LVEF 50%, posterobasal hypokinesis Obesity with BMI approx 30 Chronic smoking Fam h/o premature CAD Plan: * Continue with DAPT * Continue beta-wilma * Given fairly large IA (albeit without any epicardial CAD) we recommend c ontinuing hospitalization for another 24 hours * Increase ambulation * Consider sleep study as out pt * Discussed with Dr Rosales on 08/12/20 * Advised to quit smoking immediately and completely * Social service consult for assistance with obtaining medications Clinical Quality Measures AMI/AHF: ASA po Prior to arrival: Yes ERICK PINEDA Aug 14, 2020 10:22
[2020-08-14] MEDS ORDERED: CLOP75TA28 PO (10:26)
[2020-08-14] MEDS ORDERED: MTP25TSR PO (10:26)
[2020-08-14] MEDS ORDERED: ASPI-999 PO (10:26)
--- NOTE | 2020-08-14 11:37 | Discharge Summary ---
Discharge Summary Hospital Course Was the Problem List Reviewed?: Yes Problems/Dx: (1) Non-ST elevated myocardial infarction Status: Acute (2) Tobacco abuse Status: Chronic (3) Obesity Status: Chronic Qualifiers: Qualified Codes: E66.9 - Obesity, unspecified Hospital Course Date of Admission: Aug 12, 2020 at 12:18 Admission Diagnosis : NSTEMI Family Physician/Provider: Heike Avery Physician Date of Discharge: 08/14/20 Discharge Diagnosis: NSTEMI Hospital Course: Debbie Dunn is a 34-year-old female with obesity and family history of coronary artery disease who presented with chest pain and was admitted with non-ST elevation NC. Her EKG was unremarkable but her troponin increased significantly to >40. Cardiology was consulted and assisted with her care. She underwent a left heart catheterization which revealed no significant coronary artery disease. She was started on aspirin and Plavix. She was started on metoprolol. She reportedly had a normal ejection fraction and posterior basal h ypokinesis. She is a current smoker and cessation was recommended. She should follow-up with cardiology as scheduled. She needs to establish care with a new primary care physician and plans to follow up at the [facility]. Labs and Pending Lab Test: Laboratory Tests 08/13/20 17:57: Urine Opiates Screen NEGATIVE, Urine Oxycodone Screen NEGATIVE, Urine Methadone Screen NEGATIVE, Urine Propoxyphene Screen NEGATIVE, Urine Barbiturates Screen NEGATIVE, Ur Tricyclic Antidepressants Screen NEGATIVE, Urine Phencyclidine Screen NEGATIVE, Urine Amphetamines Screen NEGATIVE, Urine Methamphetamines Screen NEGATIVE, Urine Benzodiazepines Screen NEGATIVE, Urine Cocaine Screen NEGATIVE, Urine Cannabinoids Screen NEGATIVE Home Meds Active Aspirin 81 Mg Tab.chew 81 Mg PO DAILY Metoprolol Succinate 25 Mg Tab.er.24h 25 Mg PO DAILY Clopidogrel (Clopidogrel Bisulfate) 75 Mg Tablet 75 Mg PO DAILY Reported [depo provera] EVERY 3 MONTHS Assessment/Pt Instructions Take medications as prescribed. Follow up with cardiology. Establish care with a new primary care physician. Consider undergoing a sleep study to assess for sleep apnea. Discharge Planning: <30 minutes discharge planning Discharge Instructions Discharge Diet: No Restrictions Activity as Tolerated: Yes Discharge Physical Examination Vital Signs Vital Signs Date Time Temp Pulse Resp B/P (MAP) Pulse Ox O2 Delivery O2 Flow Rate FiO2 08/14/20 08:26 Room Air 08/14/20 08:00 35.4 63 16 115/66 (82) 99 General Appearance: No Apparent Distress, Obese Respiratory: Lungs Clear, Normal Breath Sounds, No Respiratory Distress Cardiovascular: Regular Rate, Rhythm, No Edema, No Murmur Gastrointestinal: Normal Bowel Sounds, Non Tender, Soft Extremity: Normal Inspection, Non Tender, No Pedal Edema Skin: Normal Color, Warm/Dry Neurologic/Psychiatric: Alert, Oriented x3, No Motor/Sensory Deficits, Normal Mood/Affect Allergies: Coded Allergies: No Known Drug Allergies (Unverified , 12/13/10) Copy Copies To 1: [facility] [place] Summary Date of Admission Aug 12, 2020 at 12:18 Date of Discharge Discharge Date: Aug 14, 2020 Discharge Time: 11:36 Admission Diagnosis NSTEMI Discharge Diagnosis NSTEMI (1) Non-ST elevated myocardial infarction Status: Acute (2) Tobacco abuse Status: Chronic (3) Obesity Status: Chronic Qualifiers: Qualified Codes: E66.9 - Obesity, unspecified Clinical Quality Measures AMI/AHF: ASA po Prior to arrival: Yes MARIANN BUENO MD Aug 14, 2020 11:35
--- NOTE | 2020-08-14 11:38 | NUR ---
CM/SS: Visited with pt as per her plan for discharge related to medication cost and follow up with getting a physician through [facility]. Plan: Pt will return home where she lives with her and and 5 year old. Summary: Pt is able to share that she recently moved to [place] from [place]. She only reports working 16 hours per week. Pt does not have an identified physician in town. She is educated on [facility]. She is also given the the new patient packet for [facility]. She is educated on options to assist with her prescription medication cost. Pt is agreeable with that. This worker will follow up.
--- NOTE | 2020-08-14 12:13 | Progress Note - Cardiology ---
Cardiology SOAP Progress Note Subjective: No cp or palp or syncope or shortness of breath Objective: I&O/Vital Signs 08/14/20 08/14/20 08/14/20 08/14/20 01:00 04:00 07:00 08:00 Temp 37.0 35.4 Pulse 68 67 51 63 Resp 16 16 B/P (MAP) 133/72 (92) 115/66 (82) Pulse Ox 99 99 O2 Delivery Room Air Room Air 08/14/20 08:26 O2 Delivery Room Air 08/14/20 00:00 Intake Total 1650 ml Balance 1650 ml Side: right Condition: DP/PT pulses palpable, extremity w/d/p Bruising: mild bruising Constitutional: AAO x 3, well-developed, well-nourished Respiratory: No accessory muscle use; other (good bilateral air entry) Cardiovascular: regular rate-rhythm, S1 and S2, systolic murmur (soft JOSI at card base) Gastrointestional: No tender; soft; No guarding, No rebound; audible bowel sounds Extremities: No clubbing, No cyanosis, No significant edema Neurologic/Psychiatric: oriented x 3, other (moves all limbs equally) Skin: No rash on exposed areas, No ulcerations on exposed areas Results/Procedures: Labs Laboratory Tests 08/13/20 17:57: Urine Opiates Screen NEGATIVE, Urine Oxycodone Screen NEGATIVE, Urine Methadone Screen NEGATIVE, Urine Propoxyphene Screen NEGATIVE, Urine Barbiturates Screen NEGATIVE, Ur Tricyclic Antidepressants Screen NEGATIVE, Urine Phencyclidine Screen NEGATIVE, Urine Amphetamines Screen NEGATIVE, Urine Methamphetamines Screen NEGATIVE, Urine Benzodiazepines Screen NEGATIVE, Urine Cocaine Screen NEGATIVE, Urine Cannabinoids Screen NEGATIVE Laboratory Tests 08/13/20 03:55 A/P: Assessment: Ac [place] w/o ST elevation: transient coronary thromboembolism vs atypical P rinzmetal angina (w/o ST elevation) - Card cath on 08/12/20: no significant CAD, LVEDP 5 mmHg, LVEF 50%, posterobasal hypokinesis - Echo on 08/13/20: LVEF 60-65%, no distinct regional wall motion abnormality, PASP 25-30 mmHg Obesity with BMI approx 30 Chronic smoking Fam h/o premature CAD Plan: * Continue with DAPT * Continue beta-wilma * Consider sleep study as out pt * Advised compliance with meds * Advised to quit smoking immediately and completely * Social service consult for assistance with obtaining medications Clinical Quality Measures AMI/AHF: ASA po Prior to arrival: Yes CONRAD SEALS MD FACP FACC CCDS Aug 14, 2020 12:13
== END 2020-08-14 13:34 | disposition home or self-care (01) | DRG 282 ==
LOC: EDUNIT# 07:20 → ER 07:22 → CATH 12:13 → CSD 12:18 → CATH 17:40 → CSD 18:11
PROVIDERS: ADMIT Internal Medicine; ATTEND Internal Medicine
PROC: 4A023N7 Measurement of Cardiac Sampling and Pressure, Left Heart, Percutaneous Approach (ICD-10-PCS; principal; 2020-08-12)
PROC: B2111ZZ Fluoroscopy of Multiple Coronary Arteries using Low Osmolar Contrast (ICD-10-PCS; 2020-08-12)
PROC: B2151ZZ Fluoroscopy of Left Heart using Low Osmolar Contrast (ICD-10-PCS; 2020-08-12)
DX: I21.4 Non-ST elevation (NSTEMI) myocardial infarction (principal); F17.210 Nicotine dependence, cigarettes, uncomplicated; I25.111 Atherosclerotic heart disease of native coronary artery with angina pectoris with documented spasm; E66.9 Obesity, unspecified; Z90.49 Acquired absence of other specified parts of digestive tract; Z79.82 Long term (current) use of aspirin; Z68.38 Body mass index [BMI] 38.0-38.9, adult
CPT/HCPCS: 36415; 71045; 80048; 80053; 80061; 80306; 83735; 83874; 84484; 84703; 85025; 85027; 85379; 85610; 85730; 93005; 93041; 93306; 93458; 93567